=== PATIENT | male | born 1965 | race Caucasian/White ===

== ENCOUNTER → 2019-08-22 | Outpatient (CLI) | payer OTHER | END | disposition home or self-care (01) | LOC: RAD 13:05 | DX: M19.011 Primary osteoarthritis, right shoulder (principal) ==

== ENCOUNTER → 2019-12-21 | Outpatient (CLI) | payer OTHER | END | disposition home or self-care (01) | LOC: MRI 12:54 | DX: I10 Essential (primary) hypertension (principal); E78.5 Hyperlipidemia, unspecified; F10.10 Alcohol abuse, uncomplicated ==